=== PATIENT | male | born 1990 | race African-American/Black ===

== ENCOUNTER → 2016-11-16 | Outpatient (CLI) | payer OTHER ==
[~2016-11-16] MED LIST: HYDR-3816 PO; METR500T PO
--- NOTE | 2016-11-16 15:55 | Diagnostic Imaging Report ---
PROCEDURE: MRI right joint lower extremity without contrast. TECHNIQUE: Multiplanar, multisequence non contrast-enhanced MRI of the right lower extremity was accomplished. INDICATION: Football injury. Right knee pain. FINDINGS: The exam is somewhat limited due to motion artifact and the use of an alternate coil because of the patient's size. The anterior cruciate ligament is torn. The posterior cruciate ligament is intact. No meniscal tear is seen but due to the artifact, a subtle nondisplaced tear may not be identified on this limited study. The collateral ligaments are grossly intact. There is a joint effusion with no lipohemarthrosis evident. No acute bony abnormality is seen. IMPRESSION: Anterior cruciate ligament is torn. There is a joint effusion. No other abnormality is seen. Dictated by: Dictated on workstation # [id number]
== END ==
LOC: RAD 13:08
PROVIDERS: ATTEND Orthopaedic Surgery
DX: S83.511A Sprain of anterior cruciate ligament of right knee, initial encounter (principal); X58.XXXA Exposure to other specified factors, initial encounter; Y99.8 Other external cause status
CPT/HCPCS: 73721

== ENCOUNTER 2016-12-03 14:07 | Outpatient (CLI) | payer OTHER ==
[~2016-12-03] VITALS: Ht 188 cm; Wt 119.3 kg
== END 2016-12-03 15:16 ==
LOC: PREOP 14:07
PROVIDERS: ATTEND Orthopaedic Surgery
DX: Z01.818 Encounter for other preprocedural examination (principal); S83.511A Sprain of anterior cruciate ligament of right knee, initial encounter; X58.XXXA Exposure to other specified factors, initial encounter; Y99.8 Other external cause status

== ENCOUNTER 2016-12-07 06:45 | Day surgery (SDC) | payer OTHER ==
[~2016-12-07] VITALS: Ht 188 cm; Wt 119.3 kg
[2016-12-07] MEDS ORDERED: proPOfol 200 MG/20 ML (DIPRIVAN) VIAL IV ONE (07:12)
[2016-12-07] MEDS ORDERED: ROPIVACAINE 5MG/ML 30ML VIAL ONE (07:12)
[2016-12-07] MEDS ORDERED: SEVOFLURANE (ULTANE) 15 ML INHAL SOLN ONE ×2 (07:12→10:49)
[2016-12-07] MEDS ORDERED: LIDOCAINE PF 2% 10 ML (XYLOCAINE) AMP ONE (07:12)
[2016-12-07] MEDS ORDERED: fentaNYL INJECTION 100 MCG/2 ML AMP ONE ×3 (07:12→11:23)
[2016-12-07] MEDS ORDERED: LACTATED RINGERS 1,000 ML IV ONE ×3 (07:12→11:23)
[2016-12-07] MEDS ORDERED: MIDAZOLAM 2 MG/2 ML (VERSED) VIAL ONE (07:12)
[2016-12-07] MEDS ORDERED: ONDANSETRON 4 MG/2 ML (SDV) Z0FRAN ONE (07:12)
[2016-12-07] MEDS: LACTATED RINGERS 1,000 ML IV PRN ×3 (07:15→11:29)
[2016-12-07] MEDS ORDERED: ceFAZolin 2 GM/NS 50 ML IV ONE (07:15)
--- NOTE | 2016-12-07 07:27 | Progress Note-Pre Operative ---
Pre-Operative Progress Note H&P Reviewed The H&P was reviewed, patient examined and no changes noted. Date H&P Reviewed: December 07, 2016 Time H&P Reviewed: 07:11 Pre-Operative Diagnosis: right knee ACL tear ELIER SIBLEY MD December 07, 2016 07:27
--- NOTE | 2016-12-07 07:29 | Progress Note-Post Operative ---
Post-Operative Progess Note Surgeon (s)/Grain I Farmworker (s) Surgeon ELIER SIBLEY MD Grain I Farmworker: Ho Weiss Pre-Operative Diagnosis right knee ACL tear Post-Operative Diagnosis right knee ACL tear, and chondromalacia of the trochlea and the lateral tibial plateau Post-Op Procedure Note Date of Procedure: December 07, 2016 Name of Procedure Performed: right knee arthroscopic ACL reconstruction and chondroplasty of the trochlea and lateral tibial plateau Description of the Procedure: see operative note Findings of the Procedure see above Anesthesia Type GETA plus femoral nerve block Estimated blood loss (mL): minimal Packing: none Specimen(s) collected/removed none ELIER SIBLEY MD December 07, 2016 07:29
[2016-12-07 07:44] VITALS: BP 130/89
[2016-12-07] MEDS ORDERED: HYDROcodone/APAP 7.5 MG/325 MG (LORTAB, LORCET PLUS) TABLET PO PRN (07:45)
[2016-12-07] MEDS ORDERED: METR500T PO (07:46)
[2016-12-07] MEDS ORDERED: BUPIVACAINE 0.25% 30 ML (SENSORCAINE) VIAL ONE (07:50)
[2016-12-07] MEDS ORDERED: morphine PF (DURAMORPH) 10 MG/10 ML AMP ONE (07:50)
[2016-12-07] MEDS ORDERED: ONDANSETRON 4 MG/2 ML (SDV) Z0FRAN IVP PRN (11:00)
[2016-12-07] MEDS: morphine INJ 10 MG/ML 1ML (SYR OR VIAL) IVP PRN ×2 (11:12→11:24)
[2016-12-07] MEDS: fentaNYL INJECTION 100 MCG/2 ML AMP IVP PRN ×2 (11:30→11:39)
[2016-12-07] MEDS ORDERED: hydrALAZINE (APESOLINE) 20 MG/ML VIAL ONE (11:44)
[2016-12-07] MEDS ORDERED: hydrALAZINE (APESOLINE) 20 MG/ML VIAL IV ONE (12:00)
[2016-12-07 12:05] VITALS: BP 158/101
[2016-12-07] MEDS ORDERED: HYDR-3816 PO (12:19)
[2016-12-07 12:35] VITALS: BP 149/92
[2016-12-07 13:05] VITALS: BP 145/80
[2016-12-07 14:40] VITALS: BP 145/80
--- NOTE | 2016-12-08 02:31 | OPERATIVE REPORT ---
DATE OF SERVICE: 12/07/2016 PREOPERATIVE DIAGNOSIS: Right knee anterior cruciate ligament tear. POSTOPERATIVE DIAGNOSES: 1. Right knee anterior cruciate ligament tear. 2. Right knee chondromalacia of the trochlea. 3. 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 PROCEDURES: 1. Right knee arthroscopic ACL reconstruction. 2. Right knee arthroscopic chondroplasty of the trochlea. 3. Right knee arthroscopic chondroplasty of the lateral tibial plateau. SURGEON: Edward Sibley MD GOPHERMAN: PURVI Portillo who insisted throughout the procedure and closed the incisions. ANESTHESIA: General endotracheal plus femoral nerve block as per my request for postoperative pain management, by Oneal Hester CRNA. TOURNIQUET TIME: Approximately 90 minutes at 300 mmHg. ESTIMATED BLOOD LOSS: Minimal. DRAINS: None. COMPLICATIONS: None. POSTOPERATIVE PLAN: ACL protocol. The patient was transported to the recovery room awake and in stable condition. 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 He felt and heard a pop. He had a 2+ Melida with a positive shift. An MRI confirmed an ACL disruption and due to his desire to maintain cutting and pivoting activity, the patient elected to proceed with surgical intervention. Examination under anesthesia revealed 2+ Melida, 2+ anterior drawer, positive pivot shift, no varus or valgus laxity and a negative posterior drawer. Arthroscopic findings of the patella demonstrated no gross chondral abnormalities. There were grade 3 chondral flaps of the central portion of the trochlea in a 5 x 8 area. The medial compartments demonstrated no meniscal or chondral pathology, the ACL was completely disrupted from its femoral attachment, the PCL was intact. The lateral compartment demonstrated grade 2 chondral flap in the posterior portion of the tibial plateau in a 5 x 5 area. No meniscal pathology was noted. PROCEDURE IN DETAIL: After risks and benefits of the procedure were discussed and questions were answered, informed consent was signed and placed on the chart. The operative site was confirmed in the preoperative holding area by the surgeon. The patient was then transported to the operating room. After an adequate level of general endotracheal anesthesia was obtained, a timeout was called to confirm the operative site. The right lower extremity was then prepped and draped in the usual sterile fashion. The knee joint was injected with 60 mL of fluid and standard superomedial inflow cannula was placed. An inferolateral portal was placed for the arthroscope and under direct visualization an inferomedial portal was created. The menisci and cruciates were carefully probe with the above findings noted. The unstable chondral flaps in the trochlea were debrided with a shaver back to a stable edge. The scope was then redirected into the lateral portal where the unstable chondral flaps and the lateral tibial plateau were debrided with a shaver back to a stable edge. Attention was then turned to the ACL where the ACL remnant was debrided. The lateral wall was then debrided, exposing the [id number] position. The footprint was identified and debrided on the tibia. The knee was then copiously irrigated. The scope and instruments were removed. The tourniquet was then inflated and a longitudinal incision was made over the patellar tendon, the underlying soft tissues were carefully dissected. The patellar tendon measured 33 mm in width and 10 mm was used as a graft, 20 mm bone plugs were taken off of both the tibia and patella, being careful to not propagate any stress lines. Two drill holes were drilled in each bone plug and braided suture was passed through each. The graft was made to pass easily through a 10 mm tunnel. The scope was then redirected into the knee joint. The tibial guide was placed at 60 degrees one thumb-breadth medial to the tibial tubercle. A guidewire was passed and was placed 6 mm anterior to the posterior cruciate ligament, 6 mm lateral to the mediofemoral condyle. The 10 mm reamer was then used and the posterior wall was debrided with a shaver. The acop-hjf-ked guide was placed at the 10 o'clock position and drilled to a depth of 25 mm. The two-pin passer was then passed through the tunnels and out the lateral aspect of the thigh, the graft was then passed and fit snuggly on both ends. The knee was taken through range of motion, no impingement was noted and no pistoning was noted at the tibial exit site. A 7 x 20 mm interference screw was then placed in the femoral side. The distal aspect of the graft was pulled vigorously and found to be stable. The knee was again taken through a range of motion with no impingement noted of the graft. With the knee held in 30 degrees of flexion and a posterior drawer applied, a 7 x 8 mm interference screw was placed on the tibial side with excellent purchase obtained. The scope was then redirected into the knee joint. No intraarticular penetration was noted of the hardware. The knee demonstrated full range of motion with no impingement on the graft with a negative Melida, negative pivot shift and negative anterior drawer. The knee joint was copiously irrigated. The excess bone from the bone plugs were placed at the donor sites after copiously irrigating the tendon. The portal sites were closed with 3-0 nylon in simple interrupted fashion with the knee held in 90 degrees of flexion. The patellar tendon defect was closed in a running fashion with #1 Vicryl. The wound was further irrigated, 2-0 Vicryl was used to reapproximate the subcutaneous tissue and the skin was closed with brett. The incision was infiltrated with plain Marcaine, a soft dressing and brace were applied, the tourniquet was deflated and the patient was transported to the recovery room awake and in stable condition. Job ID: [id number] DocumentID: [id number] Dictated Date: 12/07/2016 10:59:26 Production Aide Date: 12/08/2016 02:31:15 Dictated By: EDWARD SIBLEY MD
== END 2016-12-07 14:40 | disposition home or self-care (01) ==
LOC: SDC 06:45
PROVIDERS: ATTEND Orthopaedic Surgery
DX: S83.511A Sprain of anterior cruciate ligament of right knee, initial encounter (principal); M94.261 Chondromalacia, right knee; X58.XXXA Exposure to other specified factors, initial encounter; Y92.321 Football field as the place of occurrence of the external cause; Y93.61 Activity, american tackle football; Y99.8 Other external cause status
CPT/HCPCS: 87081

== ENCOUNTER 2020-03-03 18:45 | Emergency (ER) | payer BC, OTHER ==
[~2020-03-03] VITALS: Ht 182.8 cm; Wt 102.0 kg
[~2020-03-03 18:45] MED LIST changes: +HYDR-34 PO; -HYDR-3816 PO
[2020-03-03] MEDS ORDERED: ASPIRIN 81 MG CHEW (CHILDREN'S ASA) PO ONE (19:00)
[2020-03-03 19:06] LABS: BASOPHILS % (AUTO) 1 % (0-10); EOSINOPHILS % (AUTO) 1 % (0-10); HEMATOCRIT 44 % (40-54); HEMOGLOBIN 14.9 G/DL (13.3-17.7); LYMPHOCYTES # (AUTO) 1.9 X 10^3 (1.0-4.0); LYMPHOCYTES % (AUTO) 44 % (12-44); MEAN CORPUSCULAR HEMOGLOBIN 28 PG (25-34); MEAN CORPUSCULAR HGB CONC 34 G/DL (32-36); MEAN CORPUSCULAR VOLUME 82 FL (80-99); MEAN PLATELET VOLUME 9.6 FL (7.4-10.4); MONOCYTES # (AUTO) 0.3 X 10^3 (0.0-1.0); MONOCYTES % (AUTO) 7 % (0-12); NEUTROPHILS % (AUTO) 48 % (42-75); PLATELET COUNT 229 10^3/uL (130-400); RED CELL DISTRIBUTION WIDTH 14.1 % (10.0-14.5); WHITE BLOOD COUNT 4.2 10^3/uL (4.3-11.0)
--- NOTE | 2020-03-03 19:10 | ED Chest Pain ---
General Stated Complaint: CP, BACK PAIN History of Present Illness Date Seen by Provider: Mar 03, 2020 Time Seen by Provider: 18:50 Initial Comments 29-year-old -La[place] male presents for chest pain that began 02/22/20. The pain is intermittent. He tried to play basketball tonight and the left chest pain was worse. Father has hx of CAD and is on heart transplant list. 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 He started Hydroxycut this week and will change to Herbalife next week. Drinks energy drinks 2-3 times/daily. He is not on any medications, no hx of cardiac events or DM. No diaphoresis or n/v with chest pain. Also under stress, significant other had miscarriage of twins. No known COVID-19 exposure. Bishnu fever, SOA, change in taste or smell. Timing/Duration: 4-5 days Severity/Quality: moderate Location: substernal Radiation: no radiation Activities at Onset: none Prior CP/Workup: no prior chest pain ASA po CARPET CLEANER: No NTG SL CARPET CLEANER: No Associated Symptoms: denies symptoms Allergies and Home Medications Allergies Coded Allergies: No Known Drug Allergies (Unverified , 12/03/16) Home Medications Hydrocodone Bit/Acetaminophen 1 Each Tablet, 1 EACH PO Q4H PRN for PAIN-MILD TO MODERATE Prescribed by: MARÍA ELENA DIOR on 12/07/16 1219 Metronidazole 500 Mg Tablet, 500 MG PO BID, (Reported) Patient Home Medication List Home Medication List Reviewed: Yes Review of Systems Review of Systems Constitutional: no symptoms reported, see HPI Cardiovascular: See HPI, Chest Pain Gastrointestinal: No Symptoms Reported, See HPI; Denies Abdominal Pain, Denies Nausea, Denies Vomiting Skin: no symptoms reported, see HPI All Other Systems Reviewed Negative Unless Noted: Yes Past Wnrapze-Ncdcnh-Izyyqr Hx Past Med/Social Hx: Reviewed Nursing Past Med/Soc Hx Patient Social History Recent Foreign Travel: No Contact w/Someone Who Travel: No Recent Hopitalizations: No Seasonal Allergies Seasonal Allergies: No Past Medical History Reproductive Disorders: No Physical Exam Vital Signs Vital Signs - First Documented Capillary Refill : Height, Weight, BMI Height: 6'2.00" Weight: 263lbs. 0.0oz. 119.228019ab; 33.8 BMI Method: General Appearance: No Apparent Distress, WD/WN HEENT: PERRL/EOMI, TMs Normal, Normal ENT Inspection, Pharynx Normal Neck: Full Range of Motion, Normal Inspection, Non Tender, Supple Respiratory: Lungs Clear, Normal Breath Sounds, No Accessory Muscle Use Cardiovascular: Regular Rate, Rhythm, No Murmur, Normal Peripheral Pulses Gastrointestinal: Normal Bowel Sounds, Non Tender, Soft Extremity: Normal Capillary Refill, Normal Inspection, Normal Range of Motion Neurologic/Psychiatric: Alert, Oriented x3, No Motor/Sensory Deficits Skin: Normal Color, Warm/Dry Progress/Results/Core Measures Results/Orders Lab Results Laboratory Tests Test 03/03/20 18:55 03/03/20 20:10 Range/Units White Blood Count 4.2 L 4.3-11.0 10^3/uL Red Blood Count 5.37 4.35-5.85 10^6/uL Hemoglobin 14.9 13.3-17.7 G/DL Hematocrit 44 40-54 % Mean Corpuscular Volume 82 80-99 FL Mean Corpuscular Hemoglobin 28 25-34 PG Mean Corpuscular Hemoglobin Concent 34 32-36 G/DL Red Cell Distribution Width 14.1 10.0-14.5 % Platelet Count 229 130-400 10^3/uL Mean Platelet Volume 9.6 7.4-10.4 FL Neutrophils (%) (Auto) 48 42-75 % Lymphocytes (%) (Auto) 44 12-44 % Monocytes (%) (Auto) 7 0-12 % Eosinophils (%) (Auto) 1 0-10 % Basophils (%) (Auto) 1 0-10 % Neutrophils # (Auto) 2.0 1.8-7.8 X 10^3 Lymphocytes # (Auto) 1.9 1.0-4.0 X 10^3 Monocytes # (Auto) 0.3 0.0-1.0 X 10^3 Eosinophils # (Auto) 0.0 0.0-0.3 10^3/uL Basophils # (Auto) 0.0 0.0-0.1 10^3/uL Prothrombin Time 13.2 12.2-14.7 SEC INR Comment 1.0 0.8-1.4 Activated Partial Thromboplast Time 29 24-35 SEC Sodium Level 140 135-145 MMOL/L Potassium Level 4.1 3.6-5.0 MMOL/L Chloride Level 105 98-107 MMOL/L Carbon Dioxide Level 24 21-32 MMOL/L Anion Gap 11 5-14 MMOL/L Blood Urea Nitrogen 16 7-18 MG/DL Creatinine 1.42 H 0.60-1.30 MG/DL Estimat Glomerular Filtration Rate > 60 BUN/Creatinine Ratio 11 Glucose Level 107 H 70-105 MG/DL Calcium Level 9.4 8.5-10.1 MG/DL Corrected Calcium 9.0 8.5-10.1 MG/DL Magnesium Level 2.0 1.6-2.4 MG/DL Total Bilirubin 0.6 0.1-1.0 MG/DL Aspartate Amino Transf (AST/SGOT) 27 5-34 U/L Alanine Aminotransferase (ALT/SGPT) 29 0-55 U/L Alkaline Phosphatase 59 40-136 U/L Myoglobin 106.8 H 10.0-92.0 NG/ML Troponin I < 0.028 <0.028 NG/ML C-Reactive Protein High Sensitivity 0.75 H 0.00-0.50 MG/DL B-Type Natriuretic Peptide < 10.0 <100.0 PG/ML Total Protein 7.6 6.4-8.2 GM/DL Albumin 4.5 3.2-4.5 GM/DL Urine Color YELLOW Urine Clarity CLEAR Urine pH 6.0 5-9 Urine Specific [place] 1.025 H 1.016-1.022 Urine Protein NEGATIVE NEGATIVE Urine Glucose (UA) NEGATIVE NEGATIVE Urine Ketones NEGATIVE NEGATIVE Urine Nitrite NEGATIVE NEGATIVE Urine Bilirubin NEGATIVE NEGATIVE Urine Urobilinogen 1.0 < = 1.0 MG/DL Urine Leukocyte Esterase NEGATIVE NEGATIVE Urine RBC (Auto) NEGATIVE NEGATIVE Urine RBC NONE /HPF Urine WBC NONE /HPF Urine Squamous Epithelial Cells RARE /HPF Urine Crystals NONE /LPF Urine Bacteria NEGATIVE /HPF Urine Casts NONE /LPF Urine Mucus NEGATIVE /LPF Urine Culture Indicated NO Urine Opiates Screen NEGATIVE NEGATIVE Urine Oxycodone Screen NEGATIVE NEGATIVE Urine Methadone Screen NEGATIVE NEGATIVE Urine Propoxyphene Screen NEGATIVE NEGATIVE Urine Barbiturates Screen NEGATIVE NEGATIVE Ur Tricyclic Antidepressants Screen NEGATIVE NEGATIVE Urine Phencyclidine Screen NEGATIVE NEGATIVE Urine Amphetamines Screen NEGATIVE NEGATIVE Urine Methamphetamines Screen NEGATIVE NEGATIVE Urine Benzodiazepines Screen NEGATIVE NEGATIVE Urine Cocaine Screen NEGATIVE NEGATIVE Urine Cannabinoids Screen NEGATIVE NEGATIVE My Orders Orders - ALEXA,VILLA RE[employer]IGERATION MECH[employer]IC Cbc With Automated Diff (03/03/20 18:49) Magnesium (03/03/20 18:49) Chest 1 View, Ap/Pa Only (03/03/20 18:49) Ekg Tracing (03/03/20 18:49) Comprehensive Metabolic Panel (03/03/20 18:49) Myoglobin Serum (03/03/20 18:49) Protime With Inr (03/03/20 18:49) Partial Thromboplastin Time (03/03/20 18:49) O2 (03/03/20 18:49) Monitor-Rhythm Ecg Trace Only (03/03/20 18:49) Ed Iv/Invasive Line Start (03/03/20 18:49) BNP (03/03/20 18:49) Troponin I (03/03/20 18:49) Aspirin Chewable Tablet (Baby Aspirin Ch (03/03/20 19:00) Hs C Reactive Protein (03/03/20 18:49) Ua Culture If Indicated (03/03/20 18:49) Nitroglycerin 0.4 Mg Btl 25's (Nitrostat (03/03/20 19:15) Ed Iv/Invasive Line Start (03/03/20 19:55) Ns Iv 500 Ml (Sodium Chloride 0.9%) (03/03/20 19:55) Ibuprofen Tablet (Motrin Tablet) (03/03/20 20:15) Drug Screen Stat (Urine) (03/03/20 20:18) Medications Given in ED Current Medications Medications Dose Ordered Sig/Balta Route Start Time Stop Time Status Last Admin Dose Admin Aspirin 324 mg ONCE ONCE PO 03/03/20 19:00 03/03/20 19:01 DC 03/03/20 19:10 324 MG Ibuprofen 600 mg ONCE ONCE PO 03/03/20 20:15 03/03/20 20:16 DC 03/03/20 20:39 600 MG Sodium Chloride 500 ml @ 0 mls/hr Q0M ONCE IV 03/03/20 19:55 03/03/20 19:56 DC 03/03/20 19:59 0 MLS/HR Vital Signs/I&O 03/03/20 03/03/20 03/03/20 18:45 18:45 20:53 Temp 36.8 36.8 Pulse 105 97 Resp 20 18 B/P (MAP) 154/89 (110) 160/98 Pulse Ox 96 99 O2 Delivery Room Air Room Air Room Air Progress Progress Note : Time: 18:50 Progress Note Patient seen and evaluated, will obtain labs, EKG, UA. ASA 324 mg orally. B/P 150/95, will give Nitro SL 1914 B/P 135/89, will hold Nitro. Pain decreased. Ibuprofen 600 mg orally for pain. 1999 No chest pains, labs normal. Awaiting UA. 2029 Continues to have no chest pain. Discharge instructions and return precautions reviewed with the patient. All questions answered. Initial ECG Impression Date: Mar 03, 2020 Initial ECG Impression Time: 18:54 Initial ECG Rate: 95 Initial ECG Rhythm: Normal Sinus Initial ECG Intervals: Normal Initial ECG Intervals ME 133, QRSD 90, QT 357, QTC 449. Evans P 6, QRS 19, T 32. Initial ECG Impression: Normal Initial ECG Comparisson: No Previous ECG Available Diagnostic Imaging Diagonstic Imaging: Xray Plain Films/CT/US/NM/MRI: chest Comments NAME: [facility] REC#: [id number] PT STATUS: REG ER : 1990 PHYSICIAN: VILLA LIU ADMIT DATE: 03/03/20/ER Draft Date of Exam:03/03/20 CHEST 1 VIEW, AP/PA ONLY Clinical indication: Patient with chest pain and pressure. Exam: Portable chest x-ray upright view. Comparisons: None. Findings: Lungs/pleura: Lungs are clear. There is no pneumothorax. There is no pleural effusion. Mediastinum: Unremarkable. Pulmonary vasculature: Unremarkable. Heart: Unremarkable. Bones/extrathoracic soft tissue: Unremarkable. Impression: There is no radiographic evidence of acute cardiopulmonary process. Dictated on workstation # [id number] Dict: 03/03/201942 Trans: 03/03/201944 [facility] [id number] Interpreted by: AJ BORREGO MD Electronically signed by: Reviewed: Reviewed by Me Departure Impression Primary Impression: Chest wall pain Disposition: HOME, SELF-CARE Condition: Improved Departure-Patient Inst. Decision time for Depature: 20:30 Referrals: [facility] [place] NO,LOCAL PHYSICIAN (PCP) Primary Care Physician Patient Instructions: Chest Pain That Is Not Caused by the Heart (DC) Add. Discharge Instructions: Discontinue Hydroxycut and start decreasing energy drinks or other caffeinated products. Establish care with [facility] and possibly the cardiology there. Increase water intake, 16 ounces every 2 hours while awake. Adhered to a low fat low carb diet. Increase Fruit and Vegetables in diet. Take Aspirin 81 mg daily. Continue to see [facility] services. Return to the emergency department for chest pain, shortness of breath, or new urgent health care needs. VILLA LIU Mar 03, 2020 19:10
[2020-03-03 19:14] LABS: ALBUMIN 4.5 GM/DL (3.2-4.5); CHLORIDE 105 MMOL/L (98-107); POTASSIUM 4.1 MMOL/L (3.6-5.0); SODIUM 140 MMOL/L (135-145)
[2020-03-03 19:15] LABS: CALCIUM 9.4 MG/DL (8.5-10.1)
[2020-03-03] MEDS ORDERED: NITROGLYCERIN 0.4 MG SL TABS BTL 25'S SL PRN (19:15)
[2020-03-03 19:16] LABS: GLUCOSE 107 MG/DL (70-105); TOTAL PROTEIN 7.6 GM/DL (6.4-8.2)
[2020-03-03 19:17] LABS: CARBON DIOXIDE 24 MMOL/L (21-32)
[2020-03-03 19:18] LABS: BILIRUBIN,TOTAL 0.6 MG/DL (0.1-1.0); PROTHROMBIN TIME PATIENT 13.2 SEC (12.2-14.7)
[2020-03-03 19:20] LABS: ALKALINE PHOSPHATASE 59 U/L (40-136); CREATININE SERUM 1.42 MG/DL (0.60-1.30); GFR ESTIMATED > 60
[2020-03-03 19:21] LABS: BUN/CREATININE RATIO 11
[2020-03-03 19:23] LABS: ALANINE AMINOTRANSFERASE 29 U/L (0-55)
--- NOTE | 2020-03-03 19:45 | Diagnostic Imaging Report ---
Clinical indication: Patient with chest pain and pressure. Exam: Portable chest x-ray upright view. Comparisons: None. Findings: Lungs/pleura: Lungs are clear. There is no pneumothorax. There is no pleural effusion. Mediastinum: Unremarkable. Pulmonary vasculature: Unremarkable. Heart: Unremarkable. Bones/extrathoracic soft tissue: Unremarkable. Impression: There is no radiographic evidence of acute cardiopulmonary process. Dictated by: Dictated on workstation # [id number]
[2020-03-03] MEDS ORDERED: NS IV 500 ML 500 ML IV ONE (19:55)
[2020-03-03] MEDS ORDERED: IBUPROFEN 600 MG (MOTRIN) TAB PO ONE (20:15)
[2020-03-03 20:19] LABS: BILIRUBIN,URINE NEGATIVE (NEGATIVE); CLARITY,URINE CLEAR; COLOR,URINE YELLOW; GLUCOSE, URINE (UA) NEGATIVE (NEGATIVE); KETONES,URINE NEGATIVE (NEGATIVE); LEUKOCYTE ESTERASE ,URINE NEGATIVE (NEGATIVE); NITRITE,URINE NEGATIVE (NEGATIVE); PROTEIN,URINE NEGATIVE (NEGATIVE)
--- OUTSIDE RECORDS SUMMARY | 2020-03-03 20:23 | XMS REPORT | Continuity of Care Document ---
Author Organization Unknown Address Unknown Phone Unavailable Allergies Active Description Code Type Severity Reaction Onset Reported/Identified Relationship to Patient Clinical Status Yes No Known Drug Allergies [id number] Drug Allergy Unknown N/A 12/03/2016 Medications There is no data. Problems Date Dx Coded Attending Type Code Diagnosis Diagnosed By 11/22/2016 ELIER SIBLEY MD, Ot S83.511A SPRAIN OF ANTERIOR CRUCIATE LIGAMENT OF 11/22/2016 ELIER SIBLEY MD Ot X58.XXXA EXPOSURE TO OTHER SPECIFIED FACTORS, INI 11/22/2016 ELIER SIBLEY MD Ot Y99.8 OTHER EXTERNAL CAUSE STATUS 11/30/2016 ELIER SIBLEY MD, Ot S83.511A SPRAIN OF ANTERIOR CRUCIATE LIGAMENT OF 11/30/2016 ELIER SIBLEY MD Ot X58.XXXA EXPOSURE TO OTHER SPECIFIED FACTORS, INI 11/30/2016 ELIER SIBLEY MD Ot Y99.8 OTHER EXTERNAL CAUSE STATUS 12/04/2016 ELIER SIBLEY MD, Ot S83.511A SPRAIN OF ANTERIOR CRUCIATE LIGAMENT OF 12/04/2016 ELIER SIBLEY MD Ot X58.XXXA EXPOSURE TO OTHER SPECIFIED FACTORS, INI 12/04/2016 ELIER SIBLEY MD Ot Y99.8 OTHER EXTERNAL CAUSE STATUS 12/04/2016 ELIER SIBLEY MD Ot Z01.818 ENCOUNTER FOR OTHER PREPROCEDURAL EXAMIN 12/07/2016 ELIER SIBLEY MD Ot M94.261 CHONDROMALACIA, RIGHT KNEE 12/07/2016 ELIER SIBLEY MD, Ot S83.511A SPRAIN OF ANTERIOR CRUCIATE LIGAMENT OF 12/07/2016 ELIER SIBLEY MD Ot X58.XXXA EXPOSURE TO OTHER SPECIFIED FACTORS, INI 12/07/2016 ELIER SIBLEY MD Ot Y92.[address] 12/07/2016 ELIER SIBLEY MD, Ot Y93.61 ACTIVITY, YEMENI TACKLE FOOTBALL 12/07/2016 ELIER SIBLEY MD Ot Y99.8 OTHER EXTERNAL CAUSE STATUS 12/14/2016 ELIER SIBLEY MD, Ot M94.261 CHONDROMALACIA, RIGHT KNEE 12/14/2016 ELIER SIBLEY MD Ot S83.511A SPRAIN OF ANTERIOR CRUCIATE LIGAMENT OF 12/14/2016 ELIER SIBLEY MD Ot X58.XXXA EXPOSURE TO OTHER SPECIFIED FACTORS, INI 12/14/2016 ELIER SIBLEY MD Ot Y92.[address] 12/14/2016 ELIER SIBLEY MD Ot Y93.61 ACTIVITY, YEMENI TACKLE FOOTBALL 12/14/2016 ELIER SIBLEY MD Ot Y99.8 OTHER EXTERNAL CAUSE STATUS 12/19/2016 ELIER SIBLEY MD, Ot M94.261 CHONDROMALACIA, RIGHT KNEE 12/19/2016 ELIER SIBLEY MD Ot S83.511A SPRAIN OF ANTERIOR CRUCIATE LIGAMENT OF 12/19/2016 ELIER SIBLEY MD Ot X58.XXXA EXPOSURE TO OTHER SPECIFIED FACTORS, INI 12/19/2016 ELIER SIBLEY MD Ot Y92.[address] 12/19/2016 ELIER SIBLEY MD, Ot Y93.61 ACTIVITY, YEMENI TACKLE FOOTBALL 12/19/2016 ELIER SIBLEY MD Ot Y99.8 OTHER EXTERNAL CAUSE STATUS 05/16/2017 ELIER SIBLEY MD, Ot S83.511A SPRAIN OF ANTERIOR CRUCIATE LIGAMENT OF 05/16/2017 ELIER SIBLEY MD Ot X58.XXXA EXPOSURE TO OTHER SPECIFIED FACTORS, INI 05/16/2017 ELIER SIBLEY MD, Ot Y99.8 OTHER EXTERNAL CAUSE STATUS Procedures There is no data. Results Test Result Range Methicillin resistant Staphylococcus aur eus (MRSA) screening culture - 12/07/16 07:10 Methicillin resistant Staphylococcus aureus (MRSA) scr eening culture NEG NRG Encounters ACCT No. Visit Date/Time Discharge Status Pt. Type Provider Facility Loc./Unit Complaint [id number] 02/29/2020 14:30:00 02/29/2020 23:59: 59 CLS Outpatient QUETA LINDSEY [facility] [id number] 12/07/2016 06:45:00 017 14:40:00 [facility] [id number] 12/03/2016 14:07:00 017 15:16:00 DIS Outpatient ELIER SIBLEY MD [facility] PREOP RIGHT TORN ACL [id number] 11/16/2016 13:08:00 23:59:59 CLS Outpatient ELIER SIBLEY MD [facility] RAD LCL TEAR
--- OUTSIDE RECORDS SUMMARY | 2020-03-03 20:23 | XMS REPORT ---
Author Author [place] [employer] [facility] [employer] [facility] [employer] [facility] Address [address] [address] Care Team Providers Care Lease Analyst Name Role Phone NO, LOCAL PHYSICIAN Unavailable Unavailable KENDALBRENT Unavailable PCP, NONE Unavailable Unavailable Unavailable Unavailable Unavailable Unavailable Allergies The data below is from unstructured sourcesNo known allergies.No known allergies.No known allergies. No Known Allergies No Known Allergies No Known Allergies No Known Allergies No Known Allergies No Known Allergies No Known Allergies No Known Allergies Encounters Encounter Date Encounter Type Encounter Diagnosis Care Provider Facility Start: Patient encounter NONE [facility] 03-03-2020 procedure Center [facility] Start: Patient encounter NONE [facility] 02-29-2020 [facility] Start: Patient encounter NONE [facility] 11-03-2019 [facility] Start: Patient encounter ELIER SIBLEY MD Not Arnold williamson ([id number]) 12-07-2016 procedure End: 12-07-2016 Encounter for other ELIER SIBLEY MD Not Available ([phone]) preprocedural examination Medical Equipment No Information Goals No Information Immunizations The data below is from unstructured sources No Known Immunizations No Known Immunizations No Known Immunizations No Known Immunizations No Known Immunizations No Known Immunizations No Known Immunizations Interventions No Information Medications The data below is from unstructured sourcesNo known medications. Payers No Information Plan of Treatment The data below is from unstructured sources Activity Details Follow Up if not improving with PCP or reg follow up Reason: Problems Active Problems Problem Problem Date Last Documented Episodic/Chr Provider Classificati Recorded Date on on E Codes: Exposure to other specified Episodic Natural/envi factors, initial encounter ronment (5 sources) E Codes: Other external cause status ; Episod ic Unspecified Translations: [Activity, am erican (7 sources) tackle football] Sprains and Sprain of anterior cruciate Episodic strains ligament of right knee, ini tial (5 sources) encounter Past or Other Problems Problem Problem Date Last Documented Episodic/Chr Provider Classificati Recorded Date onic on E Codes: Football field as the place of Episodic ELIER Place of occurrence of the external cause SAM MUSTAFA MD occurrence (2 sources) Other bone Chondromalacia, right knee Episodic M ICHAEL disease and MARYJO ACUNA musculoskele luci deformities (2 sources) Procedures The data below is from unstructured sources Procedure Status Date Provider(s) Magnetic resonance imaging of joint of r ight lower extremity without contrast Active 11/16/16 ELIER SIBLEY MD Results Test Name Value Interpreta Reference Facilit Date tion Range y Time laboratory on 2020-03-03 Albumin [Mass/Vol] 4.5 g/dL Negative 3.2-4.5 PENDING 02-04 0-2 g/dL [facility] 14:55-0 ([id number]) 400 ALP [Catalytic 59 U/L Negative 40-136 U/L PENDING activity/Vol] [facility] S 14:55-0 ([id number]) 400 ALT [Catalytic 29 U/L Negative 0-55 U/L PENDING activity/Vol] [facility] 14:55-0 ([id number]) 400 Anion gap 11 mmol/L Negative 5-14 PENDING [Moles/Vol] mmol/L [facility] 14:55-0 ([id number]) 400 aPTT Coag (PPP) 29 s Negative 24-35 s PENDING [Time] [facility] 14:55-0 ([id number]) 400 AST [Catalytic 27 U/L Negative 5-34 U/L PENDING activity/Vol] [facility] N S 14:55-0 ([id number]) 400 Basophils (Bld) 0.0 10*3/uL Negative 0.0-0.1 PENDING 03-03 [#/Vol] 10*3/uL [facility] 14:55-0 ([id number]) 400 Basophils/100 WBC 1 % Negative 0-10 % PENDING 03-03 (Bld) [facility] 14:55-0 ([id number]) 400 Bilirubin [Mass/Vol] 0.6 mg/dL Negative 0.1-1.0 PENDING 07 -30-2 mg/dL [facility] 14:55-0 ([id number]) 400 Calcium [Mass/Vol] 9.4 mg/dL Negative 8.5-10.1 PENDING 07-3 0-2 mg/dL [facility] 14:55-0 ([id number]) 400 Calcium [Mass/Vol] 9.0 mg/dL Negative 8.5-10.1 PENDING 07-3 0-2 mg/dL [facility] 14:55-0 ([id number]) 400 Chloride [Moles/Vol] 105 mmol/L Negative 98-107 PENDING 0 7-30-2 [facility] 14:55-0 ([id number]) 400 CO2 [Moles/Vol] 24 mmol/L Negative 21-32 PENDING 07-30-2 mmol/L [facility] 14:55-0 ([id number]) 400 Creatinine 1.42 mg/dL High 0.60-1.30 PENDING 07-30-2 [Mass/Vol] mg/dL [facility] 14:55-0 ([id number]) 400 Creatinine and > Invalid PENDING 03-03-2 Glomerular Interpreta [facility] 0[facility] filtration tion Code [facility] 14:55-0 rate.predicted panel ([id number]) 400 - Serum, Plasma or Blood CRP [Mass/Vol] 0.75 High 0.00-0.50 PENDING 07-30-2 mg/dL [facility] 14:55-0 ([id number]) 400 Eosinophils (Bld) 0.0 10*3/uL Negative 0.0-0.3 PENDING 30-2 [#/Vol] 10*3/uL [facility] 14:55-0 ([id number]) 400 Eosinophils/100 WBC 1 % Negative 0-10 % PENDING -2 (Bld) [facility] 14:55-0 ([id number]) 400 Erythrocyte 14.1 % Negative 10.0-14.5 PENDING 03-03-2 distribution width % [facility] 0[facility] (RBC) [Ratio] N [facility] 14:55-0 ([id number]) 400 Glucose [Mass/Vol] 107 mg/dL High 70-105 PENDING -3 0-2 [facility] 14:55-0 ([id number]) 400 Hematocrit (Bld) 44 % Negative 40-54 % PENDING 03-03- 2 [Volume fraction] [facility] 14:55-0 ([id number]) 400 Hemoglobin (Bld) 14.9 g/dL Negative 13.3-17.7 PENDING 03-03- 2 [Mass/Vol] g[facility] 14:55-0 ([id number]) 400 INR Coag (Platelet 1.0 Negative 0.8-1.4 PENDING 02-04 0-2 poor plasma or [facility] 0[facility] blood) [Relative [facility] 14:55-0 time] ([id number]) 400 Lymphocytes (Bld) 1.9 10*3/uL Negative 1.0-4.0 PENDING -2 [#/Vol] 10*3 [facility] 14:55-0 ([id number]) 400 Lymphocytes/100 WBC 44 % Negative 12-44 % PENDING -2 (Bld) [facility] 14:55-0 ([id number]) 400 Magnesium [Mass/Vol] 2.0 mg/dL Negative 1.6-2.4 PENDING -2 mg/dL [facility] 14:55-0 ([id number]) 400 MCH (RBC) [Entitic 28 pg Negative 25-34 pg PENDING 07-3 0-2 mass] [facility] 14:55-0 ([id number]) 400 MCHC (RBC) 34 g/dL Negative 32-36 g/dL PENDING 03-03-2 [Mass/Vol] [facility] 14:55-0 ([id number]) 400 MCV (RBC) [Entitic 82 Negative 80-99 PENDING 07-3 0-2 vol] [foz_us] [facility] 14:55-0 ([id number]) 400 Monocytes (Bld) 0.3 10*3/uL Negative 0.0-1.0 PENDING 03-03 -2 [#/Vol] 10*3 [facility] 14:55-0 ([id number]) 400 Monocytes/100 WBC 7 % Negative 0-12 % PENDING 03-03 (Bld) [facility] 14:55-0 ([id number]) 400 Myoglobin [Mass/Vol] 106.8 ng/mL High 10.0-92.0 PENDING ng/mL [facility] 14:55-0 ([id number]) 400 Natriuretic peptide pg/mL Invalid <100.0 PENDING B (Bld) [Mass/Vol] Interpreta [facility] 020 tion Code N [facility] 14:55-0 ([id number]) 400 Neutrophils (Bld) 2.0 10*3/uL Negative 1.8-7.8 PENDING [#/Vol] 10*3 [facility] 14:55-0 ([id number]) 400 Neutrophils/100 WBC 48 % Negative 42-75 % PENDING (Bld) [facility] 14:55-0 ([id number]) 400 Platelet mean volume 9.6 Negative 7.4-10.4 PENDING (Bld) [Entitic vol] [foz_us] [facility] 14:55-0 ([id number]) 400 Platelets (Bld) 229 10*3/uL Negative 130-400 PENDING 03-03 [#/Vol] 10*3/uL [facility] 14:55-0 ([id number]) 400 Potassium 4.1 mmol/L Negative 3.6-5.0 PENDING [Moles/Vol] mmol/L [facility] 14:55-0 ([id number]) 400 Protein [Mass/Vol] 7.6 g/dL Negative 6.4-8.2 PENDING - 0-2 g/dL [facility] 14:55-0 ([id number]) 400 PT Coag (PPP) [Time] 13.2 s Negative 12.2-14.7 PENDING s [facility] 14:55-0 ([id number]) 400 RBC (Bld) [#/Vol] 5.37 10*6/uL Negative 4.35-5.85 PENDING 10*6/uL [facility] 14:55-0 ([id number]) 400 Sodium [Moles/Vol] 140 mmol/L Negative 135-145 PENDING mmol/L [facility] 14:55-0 ([id number]) 400 Troponin I.cardiac ng/mL Negative <0.028 PENDING 02-04 0-2 [Mass/Vol] ng/mL [facility] 14:55-0 ([id number]) 400 Urea nitrogen 16 mg/dL Negative 7-18 mg/dL PENDING [Mass/Vol] [facility] 14:55-0 ([id number]) 400 Urea 11 mg/mg Invalid PENDING nitrogen/Creatinine Interpreta [facility] 0[facility] [Mass ratio] tion Code N [facility] 14:55-0 ([id number]) 400 WBC (Bld) [#/Vol] 4.2 10*3/uL Low 4.3-11.0 PENDING 10*3/uL [facility] 14:55-0 ([id number]) 400 Social History No Information Vital Signs The data below is from unstructured sources Vital Response Date/Time Temperature (Fahrenheit) 97.4 degree s F (97.6 - 99.5) 12/07/2016 2:40pm Temperature (Calculated Celsius) 36. 11100 degrees C (36.4 - 37.5) 12/07/2016 1:05pm Temperature Source Temporal 12/07/2016 2:40pm Pulse Rate (adult) 58 bpm (60 - 90) 12/07/2016 2:40pm Respiratory Rate 18 bpm (12 - 24) 12/07/2016 2:40pm O2 Sat by Pulse Oximetry 100 % (88 - 100) 12/07/2016 2:40pm Blood Pressure 145/80 mm Hg 12/07/2016 2:40pm Blood Pressure Mean 103 mm Hg 12/07/2016 7:44am Pain Numeric Pain Scale 6 2:40pm Pain Intensity 4 2016 1:05pm Height (Feet) 6 feet 12/2016 7:42am Height (Inches) 2.00 inches 12/07/2016 7:42am Height (Calculated Centimeters) 187. 983001 cm 12/07/2016 7:42am Weight (Pounds) 263 pounds 12/07/2016 7:42am Weight (Ounces) 0.0 oz 0 12/07/2016 7:42am Weight (Calculated Grams) 563566.79 gm 12/07/2016 7:42am Weight (Calculated Kilograms) 119.29 4794 kilograms 12/07/2016 7:42am Calculated BMI 33.8 /0 12/2016 7:42am Vital Response Date/Time Height (Feet) 6 feet 08/2016 3:12pm Height (Inches) 2.00 inches 12/03/2016 3:12pm Height (Calculated Centimeters) 187. 316290 cm 12/03/2016 3:12pm Weight (Pounds) 263 pounds 12/03/2016 3:12pm Weight (Ounces) 0.0 oz 0 12/03/2016 3:12pm Weight (Calculated Grams) 638755.79 gm 12/03/2016 3:12pm Weight (Calculated Kilograms) 119.29 4794 kilograms 12/03/2016 3:12pm Calculated BMI 33.8 0 08/2016 3:12pm Functional Status The data below is from unstructured sourcesNo functional status information available.No functional status information available.No functional status information available. Mental Status No Information Advance Directives Directive Response Recor ded Date/Time Advance Directives No 7:41am Resuscitation Status Full Code 12/07/16 7:41am Directive Response Recor ded Date/Time Advance Directives No 3:13pm Resuscitation Status Full Code 12/03/16 3:13pm Discharge Instructions No hospital discharge instruction information available.No hospital discharge instruction information available. Additional Source Comments This clinical document has been generated using [employer] software that has been certified by the Office of the National Coordinator for Health Information Technology (ONC 15.99.04.3023.Diam.31.00.0.531466) and the National Committee for Director Of Field Sales (NCQA, as an eMeasure certified technology). FOR RECORDS PERTAINING TO PATIENTS WHO ARE OR HAVE BEEN ENROLLED IN A CHEMICAL D EPENDENCY/SUBSTANCE ABUSE PROGRAM, SOME INFORMATION MAY BE OMITTED. This clinica l summary was aggregated from multiple sources. Caution should be exercised in using it in the provision of clinical care. This summary normalizes information from multiple sources, and as a consequence, information in this document may ma terially change the coding, format and clinical context of patient data. In moriah tion, data may be omitted in some cases. CLINICAL DECISIONS SHOULD BE BASED ON T HE PRIMARY CLINICAL RECORDS. [facility] [employer] [facility]. provides no warranty or guara ntee of the accuracy or completeness of information in this document.The followi ng information is based on time limited clinical information
--- OUTSIDE RECORDS SUMMARY | 2020-03-03 20:23 | XMS REPORT ---
Author Author Ander EDMONDS Organization [facility] Address [address] [place] [address] Care Team Providers Care Brand Engineer Name Role Phone BRENT EDMONDS Unavailable PROBLEMS Unknown Problems ALLERGIES No Known Allergies ENCOUNTERS Encounter Location Date Diagnosis [facility] [id number] [place] [address] Mar, Sore throat J02.9 ; Screenin g for STD sexually transmitted disease Z11.3 ; Acute non-recurrent maxillary sinusitis J01.00 and Jock itch L29.8 IMMUNIZATIONS No Known Immunizations SOCIAL HISTORY Never Assessed REASON FOR VISIT STD check-no current symptoms, just a check up, 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, 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, sore throat, began on saturday, headaches, feverish, sweatin g, no n/v/d PLAN OF CARE Activity Details Follow Up if not improving with PCP or reg follow up Reason: VITAL SIGNS Height 75 in 2017-04-03 Weight 258.5 lbs 2017-04-03 Temperature 99.2 degrees Fahrenheit 2017-04-03 Heart Rate 72 bpm 2017-04-03 Respiratory Rate 18 2017-04-03 BMI 32.31 kg/m2 2017-04-03 Blood pressure systolic 122 mmHg 2017-04-03 Blood pressure diastolic 82 mmHg 2017-04-03 MEDICATIONS Medication Instructions Dosage Frequency Start Date End Date Duration S tatus Clotrimazole 1 % Externally Twice a day 1 application to affected a meche 12h Mar, May, 28 day(s) Active Azithromycin 250 MG Orally Once a day 2 tablets on the fi rst day, then 1 tablet daily for 4 days 24h Mar, Apr, 5 day(s) Active Diflucan 100 mg Orally Once a day 1 tablet 24h Mar,Apr, 017 05 days Active RESULTS Name Result Date Reference Range GC/CHLAM URINE (STATE) 2017-04-03 CHLAMYDIA negative GC negative STREP A (IN HOUSE) 2017-04-03 STREP A Negative Control + Lot # [id number] Exp date 05/04/2018 PROCEDURES Procedure Date Ordered Result Body Site STREP A ASSAY W/OPTIC Apr 03, 2017 No Charge Apr 03, 2017 INSTRUCTIONS MEDICATIONS ADMINISTERED No Known Medications MEDICAL (GENERAL) HISTORY Type Description Date Surgical History Bilateral ACL repair
[2020-03-03 20:25] LABS: BACTERIA,URINE NEGATIVE /HPF; SQUAMOUS EPITHELIAL CELL,UR RARE /HPF
[2020-03-03 20:32] LABS: AMPHETAMINE SCREEN, URINE NEGATIVE (NEGATIVE); BARBITURATE SCREEN URINE NEGATIVE (NEGATIVE); BENZODIAZEPINES SCREEN URINE NEGATIVE (NEGATIVE); CANNABINOID SCREEN, URINE NEGATIVE (NEGATIVE); COCAINE SCREEN URINE NEGATIVE (NEGATIVE); METHADONE STAT NEGATIVE (NEGATIVE); METHAMPHETAMINE SCREEN URINE S NEGATIVE (NEGATIVE); OPIATE SCREEN URINE NEGATIVE (NEGATIVE); OXYCODONE STAT NEGATIVE (NEGATIVE); PROPOXYPHENE STAT NEGATIVE (NEGATIVE); TRICYCLIC ANTIDEPRESSANTS SCRE NEGATIVE (NEGATIVE)
[2020-03-03 20:53] VITALS: BP 160/98
== END 2020-03-03 20:53 | disposition home or self-care (01) ==
LOC: EDUNIT# 18:45 → ER 18:47
DX: R07.89 Other chest pain (principal)
CPT/HCPCS: 36415; 71045; 80053; 80306; 81000; 83735; 83874; 83880; 84484; 85025; 85610; 85730; 86141; 93005; 93041